=== PATIENT | male | born 1980 | race Caucasian/White ===

== ENCOUNTER 2017-03-12 10:50 | Emergency (ER) | payer SELFPAY ==
[2017-03-12 11:04] VITALS: BP 139/69
--- NOTE | 2017-03-12 11:31 | UC ---
Lower Extremity/Ankle HPI - HPI Summary HPI Summary: 36 yo male with right foot pain x days no trauma hx gout no f/c unable to bear wt 5/10 at rest 10/10 at attempts to wt bear - History of Current Complaint Chief Complaint: UCLowerExtremity Stated Complaint: RIGHT FOOT PAIN Time Seen by Provider: 03/12/17 11:31 Hx Obtained From: Patient Onset/Duration: Gradual Onset, Lasting Days Severity Initially: Mild Severity Currently: Moderate Pain Intensity: 5 Pain Scale Used: 0-10 Numeric Aggravating Factor(s): Standing, Ambulation Alleviating Factor(s): Rest, Elevation Able to Bear Weight: No - Allergies/Home Medications Allergies/Adverse Reactions: Allergies Allergy/AdvReac Type Severity Reaction Status Date / Time Penicillins Allergy Blotchy, Verified 03/12/17 10:56 and hard to breath. PMH/Surg Hx/FS Hx/Imm Hx Previously Healthy: Yes - Surgical History Surgical History: None Surgery Procedure, Year, and Place: HERNIA BABY - Family History Known Family History: Positive: Unknown - ADOPTED - Social History Alcohol Use: Occasionally Substance Use Type: None Smoking Status (MU): Former Smoker Type: Smokeless Tobacco Amount Used/How Often: 1/2 can every 2 days When Did the Patient Quit Smoking/Using Tobacco: 3 days ago - Immunization History Most Recent Influenza Vaccination: 2013 Review of Systems Constitutional: Negative Skin: Negative Eyes: Negative ENT: Negative Respiratory: Negative Cardiovascular: Negative Gastrointestinal: Negative Genitourinary: Negative Motor: Negative Neurovascular: Negative Musculoskeletal: Arthralgia Neurological: Negative Psychological: Negative All Other Systems Reviewed And Are Negative: Yes Physical Exam Triage Information Reviewed: Yes Appearance: Well-Appearing, No Pain Distress, Well-Nourished Vital Signs: Initial Vital Signs Temp 98.4 F 03/12/17 10:57 Pulse 93 03/12/17 10:57 Resp 18 03/12/17 10:57 BP 139/69 03/12/17 10:57 Pulse Ox 99 03/12/17 10:57 Eye Exam: Normal Eyes: Positive: Conjunctiva Clear ENT: Positive: Hearing grossly normal. Negative: Nasal congestion, Nasal drainage, Tonsillar exudate, Trismus Neck: Positive: Supple, Nontender Respiratory: Positive: Lungs clear, Normal breath sounds, No respiratory distress, No accessory muscle use Cardiovascular: Positive: RRR, No Murmur Musculoskeletal: Positive: Other: - see image Neurological: Positive: Alert Psychological Exam: Normal Lower Extremity Course/Dx - Differential Dx/Diagnosis Provider Diagnoses: right foot pain_?gout Discharge - Discharge Plan Condition: Stable Disposition: HOME Prescriptions: Indomethacin CAP* [Indocin CAP*] 50 mg PO TID PRN #15 cap PRN Reason: Pain Patient Education Materials: Gout (ED), Low Purine Diet (ED) Forms: *Work Release Referrals: Theodore ALMENDAREZ,Keith Ash [Primary Care Provider] - As Soon As Possible Additional Instructions: xr was normal ? gout get rechecked at [facility] if not better crutches and post op shoe until able to bear wt comfortable take narcotic sparingly Images Feet (Multiple View): 1 - tender/swollen/slight redness and warmth
--- NOTE | 2017-03-12 11:55 | RAD ---
HISTORY: Left mid foot pain and swelling COMPARISONS: None VIEWS: 3, Frontal, lateral, and oblique views of the right foot FINDINGS: BONE DENSITY: Normal. BONES: There is no displaced fracture. JOINTS: There is no arthropathy. ALIGNMENT: There is no dislocation. SOFT TISSUES: Unremarkable. OTHER FINDINGS: None. IMPRESSION: NO ACUTE OSSEOUS INJURY. IF SYMPTOMS PERSIST, RECOMMEND REPEAT IMAGING.
== END 2017-03-12 12:35 | disposition home or self-care (01) ==
LOC: UCCORT 10:50
DX: M79.671 Pain in right foot (principal); F17.220 Nicotine dependence, chewing tobacco, uncomplicated
CPT/HCPCS: 99213; G0463

== ENCOUNTER 2017-06-04 09:23 | Emergency (ER) | payer SELFPAY ==
[2017-06-04 09:31] VITALS: BP 131/88
--- NOTE | 2017-06-04 11:00 | RAD ---
HISTORY: Headache COMPARISONS: None TECHNIQUE: Multiple contiguous axial CT scans were obtained of the head without intravenous contrast. FINDINGS: HEMORRHAGE/INFARCT: There is no hemorrhage or acute infarct. MASSES/SHIFT: There is no mass or shift. EXTRA-AXIAL SPACES: There are no extra-axial fluid collections. SULCI AND VENTRICLES: The sulci and ventricles are normal in size and position for the patient's stated age. CEREBRUM: There are no focal parenchymal abnormalities. BRAINSTEM: There are no focal parenchymal abnormalities. CEREBELLUM: There are no focal parenchymal abnormalities. VESSELS: The vessels are grossly normal. PARANASAL SINUSES: The paranasal sinuses are clear. ORBITS: The orbits are unremarkable. BONES AND SOFT TISSUE: No bone or soft tissue abnormalities are noted. OTHER: None IMPRESSION: NO ACUTE INTRACRANIAL PATHOLOGY.
--- NOTE | 2017-06-04 11:30 | UC ---
Roberto Alvarez SooYoung, scribed for Angel Floresgordo JiangDO on 06/04/17 at 0955 . Headache HPI - HPI Summary HPI Summary: A 36 y/o M presents to [facility] with severe HUNT sudden onset five days ago and worsening the next day. Pt states this is the worst HUNT in his life. Associated sx: max T of 100.3 F, diaphoresis, cough(has been ongoing on/off for some time, n/v (3-4x), dizziness, urinary frequency onset five days ago(pt has been drinking a lot of water). Denies photophobia; CP; SOB; sinus sx, pain in neck, jaw, LUE; myalgia. Denies pert PMHx: migraines. Pt was sent home from work yesterday due to the HUNT and nausea. - History Of Current Complaint Chief Complaint: UCHeadache Stated Complaint: HUNT Time Seen by Provider: 06/04/17 09:43 Hx Obtained From: Patient Onset/Duration: Sudden Onset, Lasting Days, Still Present Initially Headache Was: "Worst Headache Ever" Currently Pain Is: Severe Pain Intensity: 9 Pain Scale Used: 0-10 Numeric Timing: Constant Character: Throbbing, Pressure Location of Headache: Diffuse Aggravating Factor: Nothing Allevating Factors: Medication - minimal improvment from nsaids Associated Signs And Symptoms: Positive: Dizziness, Nausea, Vomiting, Sinus Pressure, Fever - 100.3. Negative: Neck Pain, Neck Stiffness - Allergies/Home Medications Allergies/Adverse Reactions: Allergies Allergy/AdvReac Type Severity Reaction Status Date / Time Penicillins Allergy Blotchy, Verified 03/12/17 10:56 and hard to breath. Home Medications: Home Medications Ibuprofen [Advil Migraine] 06/04/17 [History] PMH/Surg Hx/FS Hx/Imm Hx - Additional Past Medical History Additional PMH: Gout Previously Healthy: Yes Cardiovascular History: Other Other Cardiovascular History: neg: HTN Respiratory History: Other Other Respiratory History: neg: asthma - Surgical History Surgical History: None Surgery Procedure, Year, and Place: HERNIA BABY - Family History Known Family History: Positive: Unknown - ADOPTED - Social History Occupation: Employed Full-time Lives: With Family Alcohol Use: Occasionally Substance Use Type: None Smoking Status (MU): Former Smoker Type: Smokeless Tobacco Amount Used/How Often: 1/2 can every 2 days When Did the Patient Quit Smoking/Using Tobacco: 3 days ago - Immunization History Most Recent Influenza Vaccination: 2012 Review of Systems Constitutional: Fever, Other - diaphoresis Skin: Negative Eyes: Negative ENT: Negative Respiratory: Cough Cardiovascular: Negative Gastrointestinal: Vomiting, Nausea Genitourinary: Frequency Motor: Negative Neurovascular: Negative Musculoskeletal: Negative Neurological: Headache, Other - pos: dizziness Psychological: Negative All Other Systems Reviewed And Are Negative: Yes Physical Exam Triage Information Reviewed: Yes Appearance: Well-Appearing, No Pain Distress, Well-Nourished Vital Signs: Initial Vital Signs Temp 95.9 F 06/04/17 09:27 Pulse 77 06/04/17 09:27 Resp 16 06/04/17 09:27 BP 131/88 06/04/17 09:27 Pulse Ox 98 06/04/17 09:27 Vital Signs Reviewed: Yes Eyes: Positive: Conjunctiva Clear. Negative: Discharge ENT: Positive: Hearing grossly normal. Negative: Muffled/hoarse voice Neck exam: Normal Neck: Positive: Supple Respiratory: Positive: Lungs clear, Normal breath sounds, No respiratory distress, No accessory muscle use Cardiovascular: Positive: RRR, No Murmur Musculoskeletal Exam: Normal Musculoskeletal: Positive: Strength Intact Neurological: Positive: Alert, Muscle Tone Normal, Other: - aox4, strength, sensation and reflexes intact bl, cn 2-12 intact, no cerebellar signs, negative kernig's and brudzinsky's Psychological Exam: Normal Psychological: Positive: Age Appropriate Behavior Skin Exam: Normal, Other - warm, dry, nml color Diagnostics - EKG Cardiac Rate: NL - 78bpm Cardiac Rhythm: Sinus: Normal ST Segment: Normal - no ST changes Headache Course/Dx - Course Course Of Treatment: Pt medications reviewed. High blood pressure noted. Rapid influenza A and B are negative. - Differential Dx/Diagnosis Differential Diagnosis/HQI/PQRI: Meningitis, Migraine, Sinus Headache, Subarachnoid Hemorrhage, Tension Headache, Viral Syndrome, Other - lyme dz Provider Diagnoses: 1. sevee headache. 2. Elevated blood pressure without diagnosis of hypertension. - Physician Notifications Discussed Patient Care With: Miah Le - ED physician Time Discussed With Above Provider: 11:21 Instructed by Provider To: Admit As Inpatient Discharge - Discharge Plan Condition: Stable Disposition: AGAINST MEDICAL ADVICE Referrals: Keith Yan [Primary Care Provider] - Additional Instructions: Your blood pressure was elevated at this visit. That does not mean you have hypertension, it is probably due to your current condition. Please follow up with your primary care provider. Return to Urgent Care if you have any new or worsening symptoms. Lab Results - Lab Results Lab Results: 06/04/17 06/04/17 09:51 10:35 POC Urine Color Pearl POC Urine Clarity Clear POC Urine pH 5.5 POC Ur Specif [place] >= 1.030 POC Urine Protein 2+ H POC Ur Glucose (UA) Trace H POC Urine Ketones Trace H POC Urine Blood Negative POC Urine Nitrite Negative POC Urine Bilirubin 1+ H POC Urine Urobilinogen 1.0 POC U Leukocyte Esteras Negative Influenza A (Rapid) Negative Influenza B (Rapid) Negative UC Diagnostic Evaluation - Laboratory O2 Sat by Pulse Oximetry: 98 - CT CT Interpretation: No Acute Changes CT Interpretation Completed By: Radiologist The documentation as recorded by the Roberto viveros SooYoung accurately reflects the service I personally performed and the decisions made by , Shruthi Flores DO.
== END 2017-06-04 11:20 | disposition left against medical advice (07) ==
LOC: UCEAST 09:23
DX: R51 Headache (principal); R03.0 Elevated blood-pressure reading, without diagnosis of hypertension
CPT/HCPCS: 70450; 81003; 87502; 93005; 99212; G0463

== ENCOUNTER 2017-06-04 11:40 | Emergency (ER) | payer SELFPAY ==
[2017-06-04] MEDS ORDERED: diPHENhydraMINE IV* 50 MG/ML 1 ml VIAL (BENADRYL) SLOW PUSH ONE (12:34)
[2017-06-04] MEDS ORDERED: NS 0.9% 1000 ML* 1,000 ML IV ONE (12:34)
[2017-06-04] MEDS ORDERED: Metoclopramide IV* 5 MG/ML 2 ML VIAL IV SLOW PU ONE (12:34)
[2017-06-04 12:43] LABS: Hematocrit 44 % (42-52); Hemoglobin 15.1 g/dl (14.0-18.0); Mean Corpuscular HGB Conc 35 g/dl (31-36); Mean Corpuscular Hemoglobin 29 pg (27-31); Mean Corpuscular Volume 84 fL (80-94); Mean Platelet Volume 8 um3 (7.4-10.4); Red Blood Count 5.19 10^6/ul (4.0-5.4); Red Cell Distribution Width 16 % (10.5-15)
[2017-06-04 12:58] LABS: Albumin 4.5 g/dL (3.2-5.2); BUN/Creatinine Ratio 10.4 (8-20); C Reactive Protein 11.9 mg/L (< 5.00); Calcium 9.5 mg/dL (8.6-10.3); EGFR African American 115.3 (>60); EGFR Non-African American 89.7 (>60); Globulin 3.3 g/dL (2-4); Potassium 3.7 mmol/L (3.5-5.0); Total Bilirubin 0.7 mg/dL (0.2-1.0); Total Protein 7.8 g/dL (6.4-8.9)
[2017-06-04 13:07] VITALS: BP 135/81
[2017-06-04 14:22] LABS: Urine Bilirubin Negative (Negative); Urine Glucose Negative (Negative); Urine Nitrite Negative (Negative)
== END 2017-06-04 14:05 | disposition left against medical advice (07) ==
LOC: ED 11:40
DX: R51 Headache (principal); R42 Dizziness and giddiness; Z53.21 Procedure and treatment not carried out due to patient leaving prior to being seen by health care provider
CPT/HCPCS: 36415; 80053; 81003; 83605; 85025; 85610; 85652; 85730; 86140; 87040; 99282; J1200; J2765

== ENCOUNTER 2017-10-10 08:28 | Emergency (ER) | payer SELFPAY ==
[2017-10-10 08:48] VITALS: BP 123/84
--- NOTE | 2017-10-10 09:24 | ED ---
Throat Pain/Nasal Congestion - HPI Summary HPI Summary: 37 yr old with decreased hearing left ear. Onset a couple of days ago. He is having trouble hearing out of the ear, and feels like he has another cerumen impaction. He is requesting irrigation of the ear. No other complaints. No ear pain. Doesn't feel ill in any other way. - History of Current Complaint Chief Complaint: UCEar Time Seen by Provider: 10/10/17 08:32 - Allergies/Home Medications Allergies/Adverse Reactions: Allergies Allergy/AdvReac Type Severity Reaction Status Date / Time Penicillins Allergy Blotchy, Verified 10/10/17 08:42 and hard to breath. PMH/Surg Hx/FS Hx/Imm Hx Endocrine/Hematology History: Denies: Hx Diabetes Cardiovascular History: Denies: Hx Hypertension, Hx Pacemaker/ICD Respiratory History: Denies: Hx Asthma, Hx Chronic Obstructive Pulmonary Disease (COPD) History: Denies: Hx Renal Disease Sensory History: Denies: Hx Hearing Aid Psychiatric History: Denies: Hx Panic Disorder - Surgical History Surgery Procedure, Year, and Place: HERNIA BABY Infectious Disease History: No Infectious Disease History: Reports: Hx of Known/Suspected MRSA - pilonidial Denies: History Other Infectious Disease, Traveled Outside the [place] in Last 30 Days - Family History Known Family History: Positive: Unknown - ADOPTED, Hypertension Negative: Blood Disorder - Social History Alcohol Use: Occasionally Substance Use Type: Reports: None Smoking Status (MU): Current Every Day Smoker Type: Smokeless Tobacco Amount Used/How Often: 1 can every 2 days Review of Systems Positive: Fever Positive: Other - cerumen impaction All Other Systems Reviewed And Are Negative: Yes Physical Exam Triage Information Reviewed: Yes Vital Signs On Initial Exam: Initial Vitals Temp Pulse Resp BP Pulse Ox 98 F 79 18 123/84 99 10/10/17 08:42 10/10/17 08:42 10/10/17 08:42 10/10/17 08:42 10/10/17 08:42 Vital Signs Reviewed: Yes Appearance: Positive: Well-Appearing, No Pain Distress Skin: Positive: Skin Color Reflects Adequate Perfusion ENT: Positive: Normal ENT inspection, Pharynx normal. Negative: TMs normal - he has cerumen impaction left ear. Ear irrigated by nursing and then cerumen clear and TM appears normal. hearing improved. Neck: Positive: Nontender Respiratory/Lung Sounds: Positive: Clear to Auscultation, Breath Sounds Present Neurological: Positive: Sensory/Motor Intact, Alert, Oriented to Person Place, Time, CN Intact II-III, Normal Gait, Speech Normal Psychiatric: Positive: Normal - Elenita Coma Scale Best Eye Response: 4 - Spontaneous Best Motor Response: 6 - Obeys Commands Best Verbal Response: 5 - Oriented Coma Scale Total: 15 Diagnostics - Vital Signs Vital Signs Temp Pulse Resp BP Pulse Ox 10/10/17 08:42 98 F 79 18 123/84 99 - Laboratory Lab Statement: Any lab studies that have been ordered have been reviewed, and results considered in the medical decision making process. EENT Course/Dx - Course Course Of Treatment: 37 yr old with cerumen impaction left ear, irrigated, and no more wax. TM intact. hearing improved. - Diagnoses Provider Diagnoses: Cerumen impaction Discharge - Discharge Plan Condition: Good Disposition: HOME Patient Education Materials: Cerumen Impaction (ED) Referrals: Keith Yan [Primary Care Provider] -
== END 2017-10-10 09:53 | disposition home or self-care (01) ==
LOC: UCCORT 08:28
DX: H61.22 Impacted cerumen, left ear (principal); R50.9 Fever, unspecified; Z88.0 Allergy status to penicillin; F17.220 Nicotine dependence, chewing tobacco, uncomplicated
CPT/HCPCS: 99212; G0463

== ENCOUNTER 2017-10-18 11:59 | Emergency (ER) | payer OTHER ==
[2017-10-18 13:58] VITALS: BP 135/92
[2017-10-18] MEDS ORDERED: Lidocaine 1% INJ* 10 MG/ML 30 ML SDV INJ ONE (14:19)
[2017-10-18] MEDS ORDERED: Lidocaine 1% MPF* 2 ML VIAL ONE (14:40)
--- NOTE | 2017-10-18 15:05 | UC ---
Skin Complaint HPI - HPI Summary HPI Summary: 37 y/o with h/o MRSA with asbcess on buttock 2016 requiring I&D, no other symptoms since, has h/o eczema in buttock crease. Patient states 2 days ago felt pain in upper buttock crease, looked at it today, noted white head with redness around area. no fever, chills. no other symptoms. no meds, no pmh other than MRSA - History of Current Complaint Chief Complaint: UCSkin Time Seen by Provider: 10/18/17 14:07 Stated Complaint: PERSONAL Hx Obtained From: Patient Onset/Duration: Sudden Onset, Lasting Days Skin Exposure Onset/Duration: Days Ago - 2 days Onset Severity: Mild Current Severity: Moderate Pain Intensity: 5 - Allergy/Home Medications Allergies/Adverse Reactions: Allergies Allergy/AdvReac Type Severity Reaction Status Date / Time MS Penicillins [Penicillins] Allergy Blotchy, Verified 10/18/17 13:58 and hard to breath. Review of Systems Constitutional: Negative Skin: Rash, Other - redness pain at right buttock crease Neurovascular: Decreased Sensation Neurological: Negative Psychological: Negative Is Patient Immunocompromised?: No All Other Systems Reviewed And Are Negative: Yes PMH/Surg Hx/FS Hx/Imm Hx Previously Healthy: Yes - h/o MRSA - Surgical History Surgical History: Yes Surgery Procedure, Year, and Place: [facility]IA [facility]ABY - Family History Known Family History: Positive: Unknown - ADOPTED, Hypertension Negative: Blood Disorder - Social History Alcohol Use: None Substance Use Type: None Smoking Status (MU): Former Smoker Type: Smokeless Tobacco Amount Used/How Often: 1 can every 2 days When Did the Patient Quit Smoking/Using Tobacco: 3 days ago - Immunization History Most Recent Influenza Vaccination: 2012 Physical Exam Triage Information Reviewed: Yes Appearance: Well-Appearing, No Pain Distress, Well-Nourished Vital Signs: Initial Vital Signs Temp 97.9 F 10/18/17 13:50 Pulse 83 10/18/17 13:50 Resp 16 10/18/17 13:50 BP 135/92 10/18/17 13:50 Pulse Ox 99 10/18/17 13:50 Vital Signs Reviewed: Yes Neurological Exam: Normal Psychological Exam: Normal Skin: Positive: Other - raised, ercoriated skin in buttock crease b/l consistent with eczema, 1cm indurated area with small white head on right buttock crease, + tender to light touch, no drainage noted. no lymphangitic spread. Course/Dx - Course Course Of Treatment: preocedure: I&D done to right buttock crease over area of 1cm with consent, small amount of purulent fluid obtained, sent for cultures, abx given, no tracking/ no areas to be packed. f/u with pcp - Differential Diagnoses - Skin Complaint Differential Diagnoses: Abscess, Cellulitis - Diagnoses Provider Diagnoses: right buttock abscess Discharge - Discharge Plan Condition: Good Disposition: HOME Prescriptions: Sulfamethox/Trimethoprim DS* [Bactrim DS 800/160 TAB*] 1 tab PO BID #20 tab Patient Education Materials: Abscess (ED) Referrals: Theodore ALMENDAREZ,Keith Ash [Primary Care Provider] - Additional Instructions: - ANtibiotics as directed - Motrin as needed for pain - Keep area dry, OK to shower, no bathing/ soaking/ submerging wound - Return to UC or ER with increased redness, drianage, pain - FOllow up with primary within 2-3 days for re-eval - Cultures to be done in 2-3 days
--- NOTE | 2017-10-22 19:20 | UC ---
- Progress Note Progress Note: Call patient -assure that wound is improving---and he has follow up care, if not improving let provider know and we can change antibiotics---generally Staph. Lugdenensis is sensitive to Bactrim
== END 2017-10-18 15:12 | disposition home or self-care (01) ==
LOC: UCEAST 11:59
DX: L02.31 Cutaneous abscess of buttock (principal); Z86.14 Personal history of Methicillin resistant Staphylococcus aureus infection; Z88.0 Allergy status to penicillin; Z87.891 Personal history of nicotine dependence
CPT/HCPCS: 10060; 87070; 87077; 87186; 87205; 99212; G0463

== ENCOUNTER 2018-08-30 16:05 | Emergency (ER) | payer OTHER ==
[2018-08-30 16:16] VITALS: BP 141/86
--- NOTE | 2018-08-30 16:28 | UC ---
Upper Extremity HPI - HPI Summary HPI Summary: 37-year-old male comes in today with a chief complaint of left elbow pain. It is on The Medial Aspect. Pain is worse with palpation or movement of the elbow. No known trauma. No change in activity recently. No prior surgery of the elbow. Is taking some Aleve which does help some. Because the pain is worse with range of motion the patient prefers to not move his left elbow. No rash. No numbness no weakness no decreased range of motion in the hand or shoulder. No numbness. - History of Current Complaint Chief Complaint: UCUpperExtremity Stated Complaint: L ARM COMPLAINT Time Seen by Provider: 08/30/18 16:19 Pain Intensity: 6 - Allergies/Home Medications Allergies/Adverse Reactions: Allergies Allergy/AdvReac Type Severity Reaction Status Date / Time Penicillins Allergy Hives/Diff. Verified 08/30/18 16:17 Breathing/I tching Home Medications: Home Medications Naproxen Sodium [Aleve] 220 mg PO DAILY 08/30/18 [History Confirmed 08/30/18] PMH/Surg Hx/FS Hx/Imm Hx Previously Healthy: Yes - Surgical History Surgical History: Yes Surgery Procedure, Year, and Place: [facility]IA [facility]ABY - Family History Known Family History: Positive: Unknown - ADOPTED, Hypertension Negative: Blood Disorder - Social History Alcohol Use: None Substance Use Type: None Smoking Status (MU): Former Smoker Type: Smokeless Tobacco Amount Used/How Often: 1 can every 2 days When Did the Patient Quit Smoking/Using Tobacco: 3 days ago - Immunization History Most Recent Influenza Vaccination: 2012 Review of Systems All Other Systems Reviewed And Are Negative: Yes Constitutional: Positive: Negative Skin: Positive: Negative Eyes: Positive: Negative ENT: Positive: Negative Respiratory: Positive: Negative Cardiovascular: Positive: Negative Gastrointestinal: Positive: Negative Motor: Positive: Decreased ROM Neurovascular: Positive: Negative Musculoskeletal: Positive: Arthralgia - see hpi, Decreased ROM Neurological: Positive: Negative Psychological: Positive: Negative Is Patient Immunocompromised?: No Physical Exam Triage Information Reviewed: Yes Appearance: Well-Appearing, No Pain Distress, Well-Nourished Vital Signs: Initial Vital Signs Temp 97.6 F 08/30/18 16:10 Pulse 72 08/30/18 16:10 Resp 16 08/30/18 16:10 BP 141/86 08/30/18 16:10 Pulse Ox 100 08/30/18 16:10 Vital Signs Reviewed: Yes Eye Exam: Normal Eyes: Positive: Conjunctiva Clear Neck exam: Normal Neck: Positive: Supple Respiratory: Positive: No respiratory distress Musculoskeletal: Positive: Other: - Patient holds the left elbow in close to his body at approximately 90 angle. He is tender to palpation in the ulnar nerve distribution on the medial aspect of the elbow. Fingers wrists and shoulders have full range of motion strength is 5 out of 5. Right elbow has full range of motion. Left elbow some pain with supination and with attempts at extension. Normal radial pulses normal capillary refill no sensation deficits Neurological Exam: Normal Neurological: Positive: Alert, Muscle Tone Normal Psychological Exam: Normal Psychological: Positive: Age Appropriate Behavior Skin Exam: Normal Upper Extremity Course/Dx - Course Course Of Treatment: Order Information: ELBOW LEFT 3+VWS. Accession Number: [id number]. CPT: 58294. INDICATION: Atraumatic posterior left elbow pain with radiation towards the hand. COMPARISON: None. TECHNIQUE: 4 views left elbow. REPORT: Immediately distal to the medial upper condyle is a 7 mm well- circumscribed focus of bone. at the expected location of the forearm pronators/ flexors. Otherwise the visualized bones. of the left elbow are well corticated and properly aligned. There is no radiographically. apparent fracture or dislocation. There is no radiographic evidence of pathologic joint. effusion. IMPRESSION: 1. No radiographic evidence of acute traumatic injury including fracture or effusion. 2. Well-circumscribed bony focus overlying the relative location of the flexor tendon. origin could be due to calcific tendinitis. If the patient's symptoms persist further follow-up imaging is recommended. . <Electronically signed by Toñito Anderson MD in [place]> 08/30/18 [id number]. I discussed the x-ray report with the patient. The patient is most tender on the medial aspect where the calcium deposit was seen on x-ray. The plan is ice and anti-inflammatories. We are going to use a sling but, I let the patient know that he needs to take his arm out of the sling multiple times a day to ensure good range of motion of the elbow. Patient has a appointment with his orthopedist and [facility] next week and he will discuss the elbow with her at that time. Patient running on taking his own Aleve at home for the anti-inflammatory. - Differential Dx/Diagnosis Provider Diagnosis: Left elbow pain, Calcific tendinitis of left elbow Discharge - Sign-Out/Discharge Documenting (check all that apply): Patient Departure All imaging exams completed and their final reports reviewed: Yes - Discharge Plan Condition: Stable Disposition: HOME Prescriptions: HYDROcodone/ACETAMIN 5-325 MG* [[place] 5-325 TAB*] 1 tab PO Q4H PRN #20 tab MDD 6 PRN Reason: Pain Patient Education Materials: Elbow Sprain (ED) Referrals: Theodore ALMENDAREZ,Keith Ash [Primary Care Provider] - Mina Gomez MD [Medical Doctor] - Additional Instructions: FOLLOW UP WITH ORTHOPEDICS. GET RECHECKED FOR ANY WORSENING OF YOUR CONDITION OR QUESTIONS OR CONCERNS. - Billing Disposition and Condition Condition: STABLE Disposition: Home
== END 2018-08-30 17:10 | disposition home or self-care (01) ==
LOC: UCEAST 16:05
DX: M65.222 Calcific tendinitis, left upper arm (principal); M25.522 Pain in left elbow; Z88.0 Allergy status to penicillin; F17.220 Nicotine dependence, chewing tobacco, uncomplicated
CPT/HCPCS: 99213; G0463

== ENCOUNTER 2019-04-16 07:08 | Emergency (ER) | payer OTHER ==
[2019-04-16 07:26] VITALS: BP 148/83
--- NOTE | 2019-04-16 07:33 | UC ---
Complaint Male HPI - HPI Summary HPI Summary: Patient is a 38 year old male, who present today to the urgent care with urinary symptoms for past 2 weeks. He reports noticing increased frequency for about 2 weeks along with burning during urination. Denies any blood in urine. Also reports redness of his foreskin and tip of penis. He denies any discharge from his penis. He is and denies any exposure to new partner and has been in a monogamous relationship. He also reports bilateral low back pain localized in his flank area, without any radiation to the groin. Denies any injury or trauma to his back but has been there for about 2 weeks. No fevers or chills. He does have history of renal stones in the past that have passed on their own. He states he was seen by his PCP for this issue 2 weeks ago, prescribed nystatin cream and has not helpedAssociated symptoms: Denies any fever, chills, cough chest pain or shortness of breath . Denies any abdominal pain , nausea or vomiting , diarrhea or constipation - History of Current Complaint Chief Complaint: UCGU Stated Complaint: URINARY/BACK PAIN, PERSONAL Time Seen by Provider: 04/16/19 07:13 Hx Obtained From: Patient Pain Intensity: 5 - Allergies/Home Medications Allergies/Adverse Reactions: Allergies Allergy/AdvReac Type Severity Reaction Status Date / Time Penicillins Allergy Hives Verified 04/16/19 07:26 PMH/Surg Hx/FS Hx/Imm Hx - Additional Past Medical History Additional PMH: Past Medical History : Osteoarthritis, insomnia, depression and PTSD Past Surgical History: Hernia Family History : non contributory Social History : Occasional alcohol, daily smokeless tobacco use, no drug use. Previously Healthy: Yes - Surgical History Surgical History: Yes Surgery Procedure, Year, and Place: HERNIA - Family History Known Family History: Positive: Unknown - ADOPTED, Hypertension, Non- Contributory Negative: Blood Disorder - Social History Alcohol Use: Occasionally Substance Use Type: None Smoking Status (MU): Heavy Every Day Tobacco Smoker Type: Smokeless Tobacco Amount Used/How Often: 1 can every 2 days Length of Time of Smoking/Using Tobacco: since age 2008 When Did the Patient Quit Smoking/Using Tobacco: 3 days ago - Immunization History Most Recent Influenza Vaccination: 2012 Review of Systems All Other Systems Reviewed And Are Negative: Yes Constitutional: Positive: Negative Skin: Positive: Other - Penile glans and foreskin redness Eyes: Positive: Negative ENT: Positive: Negative Respiratory: Positive: Negative Cardiovascular: Positive: Negative Gastrointestinal: Positive: Negative Genitourinary: Positive: Dysuria, Frequency, Urgency. Negative: Hematuria, Vaginal/Penile Discharge Motor: Positive: Negative Neurovascular: Positive: Negative Musculoskeletal: Positive: Other: - Bilateral flank pain Neurological: Positive: Negative Psychological: Positive: Negative Is Patient Immunocompromised?: No Physical Exam - Summary Physical Exam Summary: Physical Exam: Const: Appears well. No signs of apparent distress present. Alert and oriented x 3. Musculo: Walks with a normal gait. Head/Face: Atraumatic, normocephalic on inspection. Eyes: EOMI and PERRLA in both eyes. Conjunctivae clear. No discharge noted ENT: Hearing normal Respiratory: Respirations are unlabored. Lungs clear to auscultation bilaterally, no wheezing , rhonchi or rales noted . CVS: Regular rate and Rhythm, S1S2 normal , no murmurs identified. Extremities: Peripheral circulation is grossly normal. Pulses 2+ Abdomen : Soft non tender , nondistended , Bowel sounds present . No guarding , rebound tenderness or rigidity noted. Questionable mild CVA tenderness bilaterally Skin: Glans penis and foreskin with significant erythema and breakdown of skin but no significant drainage or discharge. No penile discharge noted Neuro: Cranial nerves II to XII intact, motor and sensory intact. DTR Intact bilaterally. Mood is normal. Affect is normal. Lumbar spine: bilateral paraspinal tenderness is noted, no midline tenderness. Full range of motion, pain-free. SLRT negative bilaterally Triage Information Reviewed: Yes Vital Signs: Initial Vital Signs Temp 98 F 04/16/19 07:18 Pulse 87 04/16/19 07:18 Resp 18 04/16/19 07:18 BP 148/83 04/16/19 07:18 Pulse Ox 98 04/16/19 07:18 Vital Signs Reviewed: Yes Complaint Male Course/Dx - Course Course Of Treatment: During the visit today, we obtained urine analysis which demonstrated ketones , glucose but was negative for nitrite and leuk esterase. We discussed that he had this in the past when we looked at the lab results from May 2017 and he has an appointment with his primary care doctor on redness today and will follow up with him on that. His symptoms are consistent with balanitis likely fungal, culture was obtained to rule out any bacterial infection. Plan to treat her with fluconazole and topical clotrimazole. His urinary frequency and burning is likely secondary to balanitis. We discussed that his back pain can be secondary to lumbar strain versus renal calculi and we can get CT scan to rule it out. He reports that he has a history of renal calculi in the past and has passed them out and declines for CT scan for further evaluation. I advised him that if his back/ flank pain gets worse , he should return immediately for evaluation Patient expressed understanding . - Differential Dx/Diagnosis Differential Diagnosis/HQI/PQRI: Ureteral Calculi Provider Diagnosis: Balanitis Discharge - Sign-Out/Discharge Documenting (check all that apply): Patient Departure All imaging exams completed and their final reports reviewed: No Studies - Discharge Plan Condition: Stable Disposition: HOME Prescriptions: Clotrimazole 1% TOPICAL (NF) [Lotrimin 1% TOPICAL (NF)] 1 applic TOPICAL BID 14 Days #1 tube Fluconazole 150 MG TAB* [Diflucan 150 MG TAB*] 150 mg PO Q72H #2 tablet Patient Education Materials: Kidney Stones (ED), Balanitis (ED) Referrals: Keith Jaimes PA [Primary Care Provider] - 2 Days Additional Instructions: Please start taking the medication as prescribed to the pharmacy . Follow up with your primary care doctor in 2- 3 days , you have an appointment on thursday. Patients blood pressure slightly high in Urgent care today , plan follow up with PCP for better control within a month Return to Urgent care / ER if symptoms get worse. - Billing Disposition and Condition Condition: STABLE Disposition: Home
--- NOTE | 2019-04-18 07:27 | ED ---
Progress - Progress Note Progress Note: culture group b strep; script for macrobid sent. Course/Dx - Diagnoses Provider Diagnoses: Balanitis Discharge - Sign-Out/Discharge Documenting (check all that apply): Patient Departure All imaging exams completed and their final reports reviewed: No Studies - Discharge Plan Condition: Stable Disposition: HOME Prescriptions: Clotrimazole 1% TOPICAL (NF) [Lotrimin 1% TOPICAL (NF)] 1 applic TOPICAL BID 14 Days #1 tube Fluconazole 150 MG TAB* [Diflucan 150 MG TAB*] 150 mg PO Q72H #2 tablet Nitrofurantoin Monohyd/M-Cryst [Macrobid 100 mg Capsule] 100 mg PO BID #20 cap Patient Education Materials: Kidney Stones (ED), Balanitis (ED) Referrals: Keith Jaimes PA [Primary Care Provider] - 2 Days Additional Instructions: Please start taking the medication as prescribed to the pharmacy . Follow up with your primary care doctor in 2- 3 days , you have an appointment on thursday. Patients blood pressure slightly high in Urgent care today , plan follow up with PCP for better control within a month Return to Urgent care / ER if symptoms get worse. - Billing Disposition and Condition Condition: STABLE Disposition: Home
== END 2019-04-16 08:20 | disposition home or self-care (01) ==
LOC: UCCORT 07:08
DX: N48.1 Balanitis (principal); B95.1 Streptococcus, group B, as the cause of diseases classified elsewhere; Z88.0 Allergy status to penicillin; F17.220 Nicotine dependence, chewing tobacco, uncomplicated
CPT/HCPCS: 81003; 87070; 87077; 99212; G0463

== ENCOUNTER 2019-04-30 19:05 | Emergency (ER) | payer OTHER ==
[2019-04-30 19:26] VITALS: BP 136/87
[2019-04-30] MEDS ORDERED: Fluconazole 100 MG TAB* TAB PO ONE (20:06)
--- NOTE | 2019-04-30 21:10 | UC ---
Complaint Male HPI - HPI Summary HPI Summary: erythema and soreness around end of penis no pain or burning with urination jusr dx with NIDDm--and has begun Metformin BS still a little over 300-- similar episode 3 weeks ago got better with Diflucan, steroids and chlotrimazole - History of Current Complaint Chief Complaint: UCGU Stated Complaint: PRIVATE ISSUE Time Seen by Provider: 04/30/19 19:51 Hx Obtained From: Patient Onset/Duration: Gradual Onset, Lasting Days, Still Present, Worse Since - today Timing: Constant Pain Intensity: 3 Pain Scale Used: 0-10 Numeric Location: Penis Aggravating Factor(s): Nothing Alleviating Factor(s): Nothing Associated Signs And Symptoms: Negative: Hematuria, Dysuria, Penile Swelling, Penile Discharge - Allergies/Home Medications Allergies/Adverse Reactions: Allergies Allergy/AdvReac Type Severity Reaction Status Date / Time Penicillins Allergy Hives Verified 04/30/19 19:26 Home Medications: Home Medications metFORMIN* [Glucophage 500 MG TAB *] 500 mg PO BID 04/30/19 [History Confirmed 04/30/19] PMH/Surg Hx/FS Hx/Imm Hx Previously Healthy: No Endocrine History: Diabetes - Surgical History Surgical History: Yes Surgery Procedure, Year, and Place: HERNIA - Family History Known Family History: Positive: Unknown - ADOPTED, Hypertension, Non- Contributory Negative: Blood Disorder - Social History Occupation: Employed Full-time Lives: With Family Alcohol Use: Rare Substance Use Type: None Smoking Status (MU): Heavy Every Day Tobacco Smoker Type: Smokeless Tobacco Amount Used/How Often: 1.5 cans every 2 days Length of Time of Smoking/Using Tobacco: since age 2008 When Did the Patient Quit Smoking/Using Tobacco: 3 days ago - Immunization History Most Recent Influenza Vaccination: 2013 Review of Systems All Other Systems Reviewed And Are Negative: Yes Constitutional: Positive: Negative Skin: Positive: Rash - skin sore around glans and dumont Eyes: Positive: Negative ENT: Positive: Negative Respiratory: Positive: Negative Cardiovascular: Positive: Negative Gastrointestinal: Positive: Negative Genitourinary: Positive: Negative Motor: Positive: Negative Neurovascular: Positive: Negative Musculoskeletal: Positive: Negative Neurological: Positive: Negative Psychological: Positive: Negative Is Patient Immunocompromised?: No Physical Exam Triage Information Reviewed: Yes Appearance: Well-Appearing, No Pain Distress, Obese Vital Signs: Initial Vital Signs Temp 98.4 F 04/30/19 19:21 Pulse 88 04/30/19 19:21 Resp 16 04/30/19 19:21 BP 136/87 04/30/19 19:21 Pulse Ox 99 04/30/19 19:21 Vital Signs Reviewed: Yes Eye Exam: Normal Eyes: Positive: Conjunctiva Clear ENT Exam: Normal ENT: Positive: Normal ENT inspection, Hearing grossly normal. Negative: Trismus , Muffled voice, Hoarse voice Dental Exam: Normal Neck exam: Normal Neck: Positive: Supple, Nontender, No Lymphadenopathy Respiratory Exam: Normal Respiratory: Positive: Chest non-tender, Lungs clear, Normal breath sounds, No respiratory distress, No accessory muscle use Cardiovascular Exam: Normal Cardiovascular: Positive: RRR, No Murmur, Pulses Normal, Brisk Capillary Refill Musculoskeletal Exam: Normal Musculoskeletal: Positive: Strength Intact, ROM Intact, No Edema Neurological Exam: Normal Neurological: Positive: Alert, Muscle Tone Normal Psychological Exam: Normal Skin: Positive: Other - skin red and tissue is irratated- Complaint Male Course/Dx - Course Course Of Treatment: Diflucan, clortrimazole, hydrocortisone cream follow with pcp this week - Differential Dx/Diagnosis Provider Diagnosis: Balanitis Discharge - Sign-Out/Discharge Documenting (check all that apply): Patient Departure All imaging exams completed and their final reports reviewed: No Studies - Discharge Plan Condition: Stable Disposition: HOME Prescriptions: Fluconazole 150 MG TAB* [Diflucan 150 MG TAB*] 150 mg PO ONCE #2 tablet Patient Education Materials: Betamethasone/Clotrimazole (On the skin), Hydrocortisone (On the skin), Meal Planning with Diabetes Exchanges (DC), Balmatttis (ED) Referrals: Keith Jaimes PA [Primary Care Provider] - 2 Days - Billing Disposition and Condition Condition: STABLE Disposition: Home
--- NOTE | 2019-05-02 15:25 | UC ---
- Progress Note Progress Note: Genital culture reviewed. 2+ group B strep. Patient was treated for balantitis with oral fluconazole and topical betamethasone/clotrimazole cream and instructed to follow up with PCP in 2 days. Nursing to contact patient with results. If symptoms are not improving may need to be placed on a course of antibiotics otherwise follow up as directed for re-evaulation of symptoms. Course/Dx - Diagnoses Provider Diagnoses: Balanitis Discharge - Sign-Out/Discharge Documenting (check all that apply): Post-Discharge Follow Up All imaging exams completed and their final reports reviewed: No Studies - Discharge Plan Condition: Stable Disposition: HOME Prescriptions: Fluconazole 150 MG TAB* [Diflucan 150 MG TAB*] 150 mg PO ONCE #2 tablet Patient Education Materials: Betamethasone/Clotrimazole (On the skin), Hydrocortisone (On the skin), Meal Planning with Diabetes Exchanges (DC), Balanitis (ED) Referrals: Keith Jaimes PA [Primary Care Provider] - 2 Days - Billing Disposition and Condition Condition: STABLE Disposition: Home
== END 2019-04-30 20:15 | disposition home or self-care (01) ==
LOC: UCEAST 19:05
DX: N48.1 Balanitis (principal); E11.9 Type 2 diabetes mellitus without complications; F17.210 Nicotine dependence, cigarettes, uncomplicated; Z79.84 Long term (current) use of oral hypoglycemic drugs; Z88.0 Allergy status to penicillin
CPT/HCPCS: 87070; 87077; 99212; A9270-GY; G0463

== ENCOUNTER 2020-10-16 05:36 | Inpatient (IN) ==
[2020-10-16] MEDS ORDERED: Buffered Lidocaine 1% SYRIN 1 ml INTRADERM ONE ×2 (06:00→06:08)
[2020-10-16] MEDS ORDERED: Lactated Ringers 1000 ml BAG 1,000 ML IV SCH (06:00)
[2020-10-16] MEDS ORDERED: Clindamycin 900 MG/D5W BAG 900 MG/50 ML BAG IVPB ONE (06:08)
[2020-10-16] MEDS ORDERED: Heparin 5000 UNITS/ML 1 mL VIAL ONE (06:32)
[2020-10-16] MEDS ORDERED: Bupivacaine 0.25% SDV 30 ML ONE (07:16)
[2020-10-16] MEDS ORDERED: Methylene Blue 0.5 % 50 MG/10 ML AMP IV ONE (07:16)
[2020-10-16] MEDS ORDERED: Midazolam 2 mg/2 ml VIAL 1 mg/ml 2 ml VIAL (2 mg) ONE (07:48)
[2020-10-16] MEDS ORDERED: Rocuronium 50 mg VIAL 10 mg/ml 5 ml VIAL (50 mg) ONE (07:48)
[2020-10-16] MEDS ORDERED: fentaNYL 250 mcg/5 ml 50 MCG/ML 5 ml VIAL (250 MCG) ONE (07:48)
[2020-10-16] MEDS ORDERED: Propofol 10 MG/ML 20 ML BTL ONE (08:46)
[2020-10-16] MEDS ORDERED: Dexamethasone IV 4 MG/ML VIAL 1 ml VIAL ONE (08:46)
[2020-10-16] MEDS ORDERED: Lidocaine 2% PF 5 ML VIAL ONE (08:46)
[2020-10-16] MEDS ORDERED: Ondansetron 4 mg VIAL 2 MG/ML 2 ml VIAL ONE ×2 (08:46→11:54)
[2020-10-16] MEDS ORDERED: Glycopyrrolate IV 0.2 MG/ML 1 ML VIAL ONE (08:46)
[2020-10-16] MEDS ORDERED: DiMENhydriNATE IV 50 mg/ml 1 ml VIAL IV PUSH PRN (09:17)
[2020-10-16] MEDS ORDERED: HYDROmorphone 1 MG/1 ML SYRINGE IV PRN (09:17)
[2020-10-16] MEDS ORDERED: Ondansetron 4 mg VIAL 2 MG/ML 2 ml VIAL IV PRN ×2 (09:17→10:54)
[2020-10-16] MEDS ORDERED: Acetaminophen IV 1 GM/100ML 1,000 MG/100 ML VIAL IVPB ONE (09:17)
[2020-10-16] MEDS ORDERED: fentaNYL 100 mcg/2 ml 50 MCG/ML VIAL IV PRN (09:17)
[2020-10-16] MEDS ORDERED: Naloxone 0.4 mg VIAL 0.4 mg/ml 1 ml VIAL IV PRN (09:17)
[2020-10-16] MEDS ORDERED: HYDROmorphone 1 MG/1 ML SYRINGE ONE (09:24)
[2020-10-16] MEDS ORDERED: Metoprolol Tartrate 5 mg VIAL 5 ml VIAL (1 mg/ml) ONE (09:54)
[2020-10-16] MEDS ORDERED: HYDROcodone/ACET. 7.5/325 LIQ 15 ML UDC PO PRN (10:54)
[2020-10-16] MEDS ORDERED: HYDROmorphone 0.5 MG/0.5 ML SYRINGE IV SLOW PU PRN (10:54)
[2020-10-16] MEDS ORDERED: Dextrose 50% Syringe 50 ml 25 GM/50 ML SYRINGE IV PUSH PRN (10:58)
[2020-10-16] MEDS ORDERED: Acetaminophen IV 1 GM/100ML 100 ML ONE (11:28)
[2020-10-16] MEDS ORDERED: DiMENhydriNATE IV 50 mg/ml 1 ml VIAL ONE (11:54)
[2020-10-16] MEDS: Lactated Ringers 1000 ml BAG 1,000 ML IV SCH ×2 (15:01→19:32)
[2020-10-16] MEDS: Heparin 5000 UNITS/ML 1 mL VIAL SUBCUT SCH ×2 (19:32→21:57)
[2020-10-17] MEDS: Lactated Ringers 1000 ml BAG 1,000 ML IV SCH (01:44)
[2020-10-17] MEDS: Heparin 5000 UNITS/ML 1 mL VIAL SUBCUT SCH (06:16)
[2020-10-17 08:03] VITALS: BP 137/91
[2020-10-17] MEDS ORDERED: D5W 1/2 NS KCl 20 meq 1000 ml 1,000 ML IV SCH (13:00)
== END 2020-10-17 09:40 | disposition home or self-care (01) | DRG 403 ==
LOC: AA 05:36 → SSU 12:07
PROVIDERS: ADMIT Surgery; ATTEND Surgery